=== PATIENT | female | born 1945 | race Caucasian/White ===

== ENCOUNTER 2017-09-19 18:56 | Emergency (ER) | payer MEDICARE, OTHER ==
[2017-09-19] MEDS: LORAZEPAM 2 MG INJ IV (19:13)
[2017-09-19] MEDS: ACETAMINOPHEN 325 MG TAB PO (19:13)
[2017-09-19 19:16] LABS: ADD MAN DIFF? NO
[2017-09-19 19:18] LABS: WHITE BLOOD COUNT 6.6 10^3/ul (4.8-10.8)
[2017-09-19 19:18] LABS: BASOPHIL # 0.1 10^3/ul (0.0-0.1); BASOPHILS % 1.5 % (0.0-2.0); EOSINOPHILS # 0.2 10^3/ul (0.0-0.5); EOSINOPHILS % 2.6 % (0.0-7.0); HEMATOCRIT 40.3 % (37.0-47.0); HEMOGLOBIN 12.8 g/dl (12.0-16.0); LYMPHOCYTES # 1.8 10^3/ul (0.8-2.9); LYMPHOCYTES % 26.4 % (15.0-51.0); MEAN CORPUSCULAR HEMOGLOBIN 29.4 pg (29.0-33.0); MEAN CORPUSCULAR HGB CONC 31.8 g/dl (32.0-37.0); MEAN CORPUSCULAR VOLUME 92.4 fl (82.0-101.0); MEAN PLATELET VOLUME 9.8 fl (7.4-10.4); MONOCYTE # 0.7 10^3/ul (0.3-0.9); MONOCYTES % 10.1 % (0.0-11.0); NEUTROPHIL # 3.9 10^3/ul (1.6-7.5); NEUTROPHILS % 59.1 % (39.0-77.0); PLATELET COUNT 281 10^3/UL (140-415); RED BLOOD COUNT 4.36 10^6/ul (4.20-5.40)
[2017-09-19 19:38] LABS: INR 0.89; PARTIAL THROMBOPLASTIN TIME 29.9 Sec (25.0-35.0); PROTIME 12.1 Sec (11.9-14.9); PT RATIO 0.9
[2017-09-19 19:43] LABS: ANION GAP 18 (8-16); BLOOD UREA NITROGEN 35 mg/dl (7-20); CALCIUM 9.3 mg/dl (8.4-10.2); CARBON DIOXIDE 27 mmol/L (21-31); CHLORIDE 108 mmol/L (97-110); CHOL/HDL RATIO 4.5 RATIO; CHOLESTEROL 180 mg/dl (100-200); CREATININE 1.06 mg/dl (0.44-1.00); GLUCOSE 125 mg/dl (70-220); HDL CHOLESTEROL 40 mg/dl (33-92); LDL CHOLESTEROL,CALCULATED 73 mg/dl; POTASSIUM 4.7 mmol/L (3.5-5.1); SODIUM 148 mmol/L (135-144); TRIGLYCERIDES 333 mg/dl (0-149)
[2017-09-19 19:46] LABS: HEMOGLOBIN A1C 6.5 % (0-5.9)
[2017-09-19 19:56] LABS: TROPONIN-I < 0.010 ng/ml (0.000-0.120)
[2017-09-19] MEDS: NICARDipine HCL 30 MG CAPSULE PO (20:25)
== END 2017-09-19 20:31 | disposition home or self-care (01) ==
LOC: E/R 18:56
DX: I10 Essential (primary) hypertension (principal); E11.9 Type 2 diabetes mellitus without complications; R00.1 Bradycardia, unspecified; Z79.82 Long term (current) use of aspirin; Z79.899 Other long term (current) drug therapy
CPT/HCPCS: 36415; 70450; 71045; 80048; 80061; 82962; 83036; 84484; 85025; 85610; 85730; 96374; 99285-25

== ENCOUNTER 2018-08-01 17:43 | Inpatient (IN) | payer MEDICARE, OTHER ==
[2018-08-01] MEDS: morphine 4 MG/ML VIAL IV (18:34)
[2018-08-01] MEDS: FAMOTIDINE 20 MG INJ IV (18:34)
[2018-08-01] MEDS: ONDANSETRON 4 MG INJ IV (18:34)
[2018-08-01] MEDS: SOD CHLORIDE 0.9% 1,000 ML IV ×2 (18:34→20:07)
[2018-08-01 18:35] LABS: ADD MAN DIFF? NO
[2018-08-01 18:38] LABS: BASOPHILS % 0.2 % (0.0-2.0); EOSINOPHILS % 0.2 % (0.0-7.0); HEMATOCRIT 33.9 % (37.0-47.0); HEMOGLOBIN 11.8 g/dl (12.0-16.0); LYMPHOCYTES # 0.9 10^3/ul (0.8-2.9); LYMPHOCYTES % 21.3 % (15.0-51.0); MEAN CORPUSCULAR HGB CONC 34.8 g/dl (32.0-37.0); MEAN CORPUSCULAR VOLUME 83.3 fl (82.0-101.0); MEAN PLATELET VOLUME 8.9 fl (7.4-10.4); MONOCYTE # 0.5 10^3/ul (0.3-0.9); MONOCYTES % 12.7 % (0.0-11.0); NEUTROPHIL # 2.6 10^3/ul (1.6-7.5); NEUTROPHILS % 65.4 % (39.0-77.0); PLATELET COUNT 284 10^3/UL (140-415); RED BLOOD COUNT 4.07 10^6/ul (4.20-5.40); RED CELL DISTRIBUTION WIDTH 12.7 % (11.5-14.5)
[2018-08-01 18:53] LABS: INR 0.93; PROTIME 12.6 Sec (11.9-14.9)
[2018-08-01 18:54] LABS: PARTIAL THROMBOPLASTIN TIME 29.3 Sec (23.0-35.0)
[2018-08-01 18:56] LABS: ALANINE AMINOTRANSFERASE 20 IU/L (13-69); ALBUMIN 4.3 g/dl (3.3-4.9); ALBUMIN/GLOBULIN RATIO 1.72; ALKALINE PHOSPHATASE 48 IU/L (42-121); AMYLASE 72 U/L (11-123); ANION GAP 17 (5-13); ASPARTATE AMINO TRANSFERASE 29 IU/L (15-46); BILIRUBIN,INDIRECT 0.4 mg/dl (0-1.1); BILIRUBIN,TOTAL 0.4 mg/dl (0.2-1.3); BLOOD UREA NITROGEN 15 mg/dl (7-20); CALCIUM 9.1 mg/dl (8.4-10.2); CARBON DIOXIDE 21 mmol/L (21-31); CHLORIDE 76 mmol/L (97-110); CREATININE 0.79 mg/dl (0.44-1.00); GLUCOSE 157 mg/dl (70-220); LIPASE 168 U/L (23-300); POTASSIUM 4.4 mmol/L (3.5-5.1); TOTAL PROTEIN 6.8 g/dl (6.1-8.1)
[2018-08-01 19:07] LABS: TROPONIN-I < 0.012 ng/ml (0.000-0.120)
[2018-08-01 19:14] LABS: SODIUM 114 mmol/L (135-144)
[2018-08-01] MEDS ORDERED: ONDANSETRON 4 MG INJ IV (20:00)
[2018-08-01] MEDS ORDERED: ACETAMINOPHEN 325 MG TAB PO (20:00)
[2018-08-01] MEDS: METOCLOPRAMIDE 10 MG INJ IV ×2 (20:07→20:26)
[2018-08-01] MEDS: IOHEXOL 300MG/ML 150 ML BTL (20:09)
[2018-08-01] MEDS: SOD CHLORIDE 0.9% 100 ML (20:09)
[2018-08-01 20:15] LABS: ADD UMIC NO; UR ASCORBIC ACID NEGATIVE (NEGATIVE); UR BILIRUBIN (Dip) NEGATIVE (NEGATIVE); UR BLOOD (Dip) NEGATIVE (NEGATIVE); UR CLARITY CLEAR (CLEAR); UR COLOR STRAW (YELLOW); UR GLUCOSE (Dip) NEGATIVE (NEGATIVE); UR KETONES (Dip) 1+ mg/dL (NEGATIVE); UR LEUKOCYTE ESTERASE (Dip) NEGATIVE Leu/ul (NEGATIVE); UR NITRITE (Dip) NEGATIVE (NEGATIVE); UR SPECIFIC GRAVITY (Dip) 1.013 (1.003-1.030); UR TOTAL PROTEIN (Dip) NEGATIVE (NEGATIVE); UR UROBILINOGEN (Dip) NEGATIVE (NEGATIVE)
[2018-08-01] MEDS ORDERED: NACL 0.9% 3 ML SYG IV (20:30)
[2018-08-01] MEDS ORDERED: hydrALAzine 20 MG INJ IV (20:30)
[2018-08-01] MEDS ORDERED: METOCLOPRAMIDE 10 MG INJ IV (20:30)
[2018-08-01 20:40] LABS: UR BACTERIA FEW /HPF (NONE SEEN); UR RBC 0 /HPF (0-5); UR WBC 0 /HPF (0-5)
[2018-08-01 20:54] LABS: SODIUM,URINE RANDOM 100 mmol/L (30-90)
[2018-08-01 21:00] LABS: OSMOLALITY 235 mOsm/kg (280-295)
[2018-08-01 21:01] LABS: OSMOLALITY,URINE 310 mOsm/kg (250-1200)
[2018-08-01 22:39] LABS: ANION GAP 13 (5-13); BLOOD UREA NITROGEN 13 mg/dl (7-20); CALCIUM 8.1 mg/dl (8.4-10.2); CARBON DIOXIDE 23 mmol/L (21-31); CHLORIDE 80 mmol/L (97-110); CREATININE 0.75 mg/dl (0.44-1.00); GLUCOSE 144 mg/dl (70-220); POTASSIUM 4.6 mmol/L (3.5-5.1)
[2018-08-01 22:42] LABS: SODIUM 116 mmol/L (135-144)
[2018-08-02] MEDS: SOD CHLORIDE 0.9% 1,000 ML IV ×2 (00:16→07:58)
[2018-08-02 01:43] LABS: ANION GAP 10 (5-13); BLOOD UREA NITROGEN 12 mg/dl (7-20); CALCIUM 8.2 mg/dl (8.4-10.2); CARBON DIOXIDE 21 mmol/L (21-31); CHLORIDE 84 mmol/L (97-110); CREATININE 0.68 mg/dl (0.44-1.00); GLUCOSE 131 mg/dl (70-220); POTASSIUM 4.5 mmol/L (3.5-5.1)
[2018-08-02 01:47] LABS: SODIUM 115 mmol/L (135-144)
[2018-08-02] MEDS: morphine 2 MG INJ IV (03:21)
[2018-08-02 03:33] LABS: ANION GAP 10 (5-13); BLOOD UREA NITROGEN 12 mg/dl (7-20); CARBON DIOXIDE 25 mmol/L (21-31); CHLORIDE 83 mmol/L (97-110); GLUCOSE 113 mg/dl (70-220); POTASSIUM 4.7 mmol/L (3.5-5.1)
[2018-08-02 03:50] LABS: SODIUM 118 mmol/L (135-144)
[2018-08-02] MEDS: NACL 3% 500 ML IV ×2 (07:58→18:59)
[2018-08-02] MEDS: ONDANSETRON 4 MG INJ IV (07:58)
[2018-08-02 08:49] LABS: ANION GAP 11 (5-13); BLOOD UREA NITROGEN 11 mg/dl (7-20); CALCIUM 7.9 mg/dl (8.4-10.2); CARBON DIOXIDE 24 mmol/L (21-31); CHLORIDE 83 mmol/L (97-110); CREATININE 0.71 mg/dl (0.44-1.00); GLUCOSE 79 mg/dl (70-220); POTASSIUM 3.9 mmol/L (3.5-5.1)
[2018-08-02 08:54] LABS: CHOL/HDL RATIO 2.8 RATIO; HDL CHOLESTEROL 34 mg/dl (33-92); LDL CHOLESTEROL,CALCULATED 40 mg/dl; TRIGLYCERIDES 119 mg/dl (0-149)
[2018-08-02 08:54] LABS: CHOLESTEROL 98 mg/dl (100-200)
[2018-08-02] MEDS ORDERED: LORAZEPAM 1 MG TAB PO (09:00)
[2018-08-02 09:05] LABS: SODIUM 118 mmol/L (135-144)
[2018-08-02] MEDS: CREON (24K-76K-120K) 1 CAP PO ×2 (11:40→17:45)
[2018-08-02] MEDS: ASPIRIN (EC) 81 MG TAB PO (11:40)
[2018-08-02 11:58] LABS: ANION GAP 12 (5-13); BLOOD UREA NITROGEN 10 mg/dl (7-20); CARBON DIOXIDE 24 mmol/L (21-31); CHLORIDE 81 mmol/L (97-110); CREATININE 0.73 mg/dl (0.44-1.00); GLUCOSE 102 mg/dl (70-220); POTASSIUM 3.9 mmol/L (3.5-5.1)
[2018-08-02] MEDS: ACETAMINOPHEN 325 MG TAB PO (12:07)
[2018-08-02 12:08] LABS: SODIUM 117 mmol/L (135-144)
[2018-08-02 15:26] LABS: ANION GAP 13 (5-13); BLOOD UREA NITROGEN 10 mg/dl (7-20); CALCIUM 7.8 mg/dl (8.4-10.2); CARBON DIOXIDE 23 mmol/L (21-31); CHLORIDE 81 mmol/L (97-110); CREATININE 0.71 mg/dl (0.44-1.00); GLUCOSE 132 mg/dl (70-220); POTASSIUM 3.9 mmol/L (3.5-5.1)
[2018-08-02 15:32] LABS: SODIUM 117 mmol/L (135-144)
[2018-08-02 18:31] LABS: ANION GAP 10 (5-13); BLOOD UREA NITROGEN 9 mg/dl (7-20); CALCIUM 8.4 mg/dl (8.4-10.2); CARBON DIOXIDE 24 mmol/L (21-31); CHLORIDE 83 mmol/L (97-110); CREATININE 0.78 mg/dl (0.44-1.00); GLUCOSE 108 mg/dl (70-220); POTASSIUM 4.1 mmol/L (3.5-5.1)
[2018-08-02 18:38] LABS: SODIUM 117 mmol/L (135-144)
[2018-08-02] MEDS: EZETIMIBE 10 MG TAB PO (21:22)
[2018-08-02] MEDS: LATANOPROST 0.005% 2.5 ML OPH BOTH EYES (21:22)
[2018-08-02 22:35] LABS: ANION GAP 10 (5-13); BLOOD UREA NITROGEN 9 mg/dl (7-20); CALCIUM 8.7 mg/dl (8.4-10.2); CARBON DIOXIDE 24 mmol/L (21-31); CHLORIDE 88 mmol/L (97-110); CREATININE 0.71 mg/dl (0.44-1.00); GLUCOSE 102 mg/dl (70-220); POTASSIUM 3.9 mmol/L (3.5-5.1); SODIUM 122 mmol/L (135-144)
[2018-08-03 06:27] LABS: ADD MAN DIFF? NO
[2018-08-03 06:37] LABS: WHITE BLOOD COUNT 2.8 10^3/ul (4.8-10.8)
[2018-08-03 06:37] LABS: BASOPHILS % 0.7 % (0.0-2.0); EOSINOPHILS % 0.4 % (0.0-7.0); HEMATOCRIT 34.5 % (37.0-47.0); HEMOGLOBIN 11.9 g/dl (12.0-16.0); LYMPHOCYTES % 36.4 % (15.0-51.0); MEAN CORPUSCULAR HEMOGLOBIN 29.2 pg (29.0-33.0); MEAN CORPUSCULAR HGB CONC 34.5 g/dl (32.0-37.0); MEAN CORPUSCULAR VOLUME 84.8 fl (82.0-101.0); MEAN PLATELET VOLUME 8.9 fl (7.4-10.4); MONOCYTE # 0.5 10^3/ul (0.3-0.9); MONOCYTES % 16.1 % (0.0-11.0); NEUTROPHIL # 1.3 10^3/ul (1.6-7.5); PLATELET COUNT 324 10^3/UL (140-415); RED BLOOD COUNT 4.07 10^6/ul (4.20-5.40); RED CELL DISTRIBUTION WIDTH 12.7 % (11.5-14.5)
[2018-08-03 07:10] LABS: SODIUM 129 mmol/L (135-144)
[2018-08-03] MEDS: CREON (24K-76K-120K) 1 CAP PO ×3 (07:49→17:24)
[2018-08-03] MEDS: LEVOTHYROXINE 50 MCG TAB PO (07:49)
[2018-08-03] MEDS: LOSARTAN 25 MG TAB PO (08:30)
[2018-08-03] MEDS: ASPIRIN (EC) 81 MG TAB PO (08:30)
[2018-08-03] MEDS: ENOXAPARIN 40 MG/0.4 ML SYG SC (08:37)
[2018-08-03 12:44] LABS: SODIUM 129 mmol/L (135-144)
[2018-08-03 18:21] LABS: SODIUM 129 mmol/L (135-144)
[2018-08-03] MEDS: EZETIMIBE 10 MG TAB PO (21:37)
[2018-08-03] MEDS: LATANOPROST 0.005% 2.5 ML OPH BOTH EYES (21:37)
[2018-08-04 01:16] LABS: SODIUM 131 mmol/L (135-144)
[2018-08-04 06:23] LABS: WHITE BLOOD COUNT 4.9 10^3/ul (4.8-10.8)
[2018-08-04 06:23] LABS: HEMATOCRIT 35.2 % (37.0-47.0); MEAN CORPUSCULAR HEMOGLOBIN 28.9 pg (29.0-33.0); MEAN CORPUSCULAR HGB CONC 34.1 g/dl (32.0-37.0); MEAN CORPUSCULAR VOLUME 84.8 fl (82.0-101.0); MEAN PLATELET VOLUME 8.8 fl (7.4-10.4); PLATELET COUNT 323 10^3/UL (140-415); RED BLOOD COUNT 4.15 10^6/ul (4.20-5.40); RED CELL DISTRIBUTION WIDTH 13.2 % (11.5-14.5)
[2018-08-04 06:43] LABS: ADD MAN DIFF? YES; POSITIVE DIFF @See below
[2018-08-04] MEDS: LEVOTHYROXINE 50 MCG TAB PO (06:52)
[2018-08-04 07:21] LABS: PHOSPHORUS 3.1 mg/dl (2.5-4.9)
[2018-08-04 07:26] LABS: ANION GAP 9 (5-13); BLOOD UREA NITROGEN 17 mg/dl (7-20); CALCIUM 8.9 mg/dl (8.4-10.2); CARBON DIOXIDE 28 mmol/L (21-31); CHLORIDE 96 mmol/L (97-110); CREATININE 0.87 mg/dl (0.44-1.00); GLUCOSE 91 mg/dl (70-220); POTASSIUM 3.9 mmol/L (3.5-5.1); SODIUM 133 mmol/L (135-144)
[2018-08-04] MEDS: ASPIRIN (EC) 81 MG TAB PO (08:06)
[2018-08-04] MEDS: CREON (24K-76K-120K) 1 CAP PO ×2 (08:06→11:55)
[2018-08-04] MEDS: LOSARTAN 25 MG TAB PO (08:07)
[2018-08-04 08:09] LABS: BAND NEUTROPHILS % (M) 2 % (0-4); LYMPHOCYTES #M 2.6 10^3/ul (0.8-2.9); LYMPHOCYTES % (M) 55 % (15-51); MONOCYTE #M 0.2 10^3/ul (0.3-0.9); MONOCYTES % (M) 5 % (0-11); PLATELET ESTIMATE NORMAL; SEG NEUT #M 1.9 10^3/ul (1.6-7.5); SEGMENTED NEUTROPHILS (M) % 38 % (39-77); SMUDGE%M 19 % (0-0); SPHEROCYTES 1+ (0-0)
[2018-08-04] MEDS: ENOXAPARIN 40 MG/0.4 ML SYG SC (08:10)
[2018-08-04 10:53] LABS: SODIUM 132 mmol/L (135-144)
[2018-08-04 13:16] LABS: SODIUM 128 mmol/L (135-144)
== END 2018-08-04 13:06 | disposition home or self-care (01) | DRG 645 ==
LOC: E/R 17:43 → TEL 19:45
DX: E22.2 Syndrome of inappropriate secretion of antidiuretic hormone (principal); I48.0 Paroxysmal atrial fibrillation; E66.9 Obesity, unspecified; Z68.34 Body mass index [BMI] 34.0-34.9, adult; K59.09 Other constipation; F32.9 Major depressive disorder, single episode, unspecified; E03.9 Hypothyroidism, unspecified; E78.5 Hyperlipidemia, unspecified; I10 Essential (primary) hypertension; E11.9 Type 2 diabetes mellitus without complications; H40.9 Unspecified glaucoma; D64.9 Anemia, unspecified; Z90.49 Acquired absence of other specified parts of digestive tract; Z79.84 Long term (current) use of oral hypoglycemic drugs
CPT/HCPCS: 36415; 71045; 74177; 80048; 80053; 80061; 81003; 82150; 83036; 83690; 83735; 83930; 83935; 84100; 84295; 84300; 84443; 84484; 85025; 85610; 85730; 87086; 93005; 96361; 96374; 96375; 99285-25